=== PATIENT | female | born 1940 | race Caucasian/White ===

== ENCOUNTER 2021-08-19 14:34 | Outpatient (CLI) | payer MEDICARE | END 2021-08-19 14:35 | disposition home or self-care (01) | LOC: ULT 14:34 | PROVIDERS: ATTEND Internal Medicine | DX: I10 Essential (primary) hypertension (principal); N28.1 Cyst of kidney, acquired | CPT/HCPCS: 76770 ==

== ENCOUNTER 2022-04-26 06:13 | Inpatient (IN) | payer MEDICARE ==
[2022-04-26 06:53] LABS: #Basophils 0.1 thou/uL (0.0-0.2); #Eosinphils 0.2 thou/uL (0.0-0.7); #Lymphocytes 1.9 thou/uL (1.20-3.40); #Monocytes 0.5 thou/uL (0.11-0.59); %Basophils 1.2 % (0.0-1.0); %Eosinophils 4.2 % (0.0-10.0); %Monocytes 8.7 % (0.0-10.0); %Neutrophils 52.9 % (42.0-75.0); Hemoglobin 13.7 g/dL (12.0-16.0); Mean Corpuscular HGB CONC 33.7 g/dL (32.0-36.0); Mean Corpuscular Hemoglobin 34.7 pg (27.0-31.0); Mean Platelet Volume 9.2 fL (7.4-10.4); Platelet Count 173 thou/uL (130-400); RBC Distribution Width 10.6 % (11.5-14.5); Red Blood Cell (RBC) Count 3.94 mill/uL (4.20-5.40); White Blood Cell (WBC) Count 5.7 thou/uL (4.8-10.8)
[2022-04-26 07:58] LABS: ALT (SGPT) 20 U/L (8-55); AST (SGOT) 21 U/L (5-34); Albumin 3.5 g/dL (3.4-4.8); Alkaline Phosphatase 55 U/L (40-110); Anion Gap 10 mmol/L (10-20); BUN (Urea Nitrogen) 32 mg/dL (9.8-20.1); Bilirubin, Total 0.3 mg/dL (0.2-1.2); Calc. Creatinine Clearance 0 mL/min (70-130); Calcium 8.6 mg/dL (7.8-10.44); Carbon Dioxide 23 mmol/L (23-31); Chloride 111 mmol/L (98-107); Estimated GFR 70; Glucose 88 mg/dL (83-110); Magnesium 1.7 mg/dL (1.6-2.6); Potassium 3.9 mmol/L (3.5-5.1); Protein, Total 5.5 g/dL (5.8-8.1); Sodium 140 mmol/L (136-145)
[2022-04-26] MEDS ORDERED: Iopamidol-370 76% 500 ML 1 ML ONE (08:39)
[2022-04-26] MEDS ORDERED: Aspirin Chewable 81 MG TAB ONE (08:40)
[2022-04-26] MEDS ORDERED: Enoxaparin Sodium 60 MG/0.6 ML SYRINGE ONE (08:40)
[2022-04-26] MEDS ORDERED: Digoxin 0.5 MG/2 ML AMP ONE ×2 (08:41→08:43)
[2022-04-26] MEDS ORDERED: Magnesium 2 GM/50 ML BAG (IN WATER) ONE (09:51)
[2022-04-26] MEDS ORDERED: Magnesium 2 GM/50 ML(in water) 2 GM in Premix Bag 1 BAG IVPB SCH (10:00)
[2022-04-26 10:16] LABS: Troponin I 0.148 ng/mL (< 0.028)
[2022-04-26 11:13] LABS: SARS-CoV-2 NAA Rapid Test Not Detected (NotDetected)
[2022-04-26 13:10] LABS: Troponin I 0.294 ng/mL (< 0.028)
[2022-04-26] MEDS ORDERED: Ondansetron ODT 4 MG TAB PO PRN (14:07)
[2022-04-26] MEDS ORDERED: Ondansetron PF 4 MG/2 ML Vial IVP PRN (14:07)
[2022-04-26] MEDS: Sodium Chloride 0.9% 1,000 ML IV SCH (14:39)
[2022-04-26] MEDS ORDERED: Digoxin 0.5 MG/2 ML AMP SLOW IVP SCH (15:00)
[2022-04-26 15:01] VITALS: BMI 24.7
[2022-04-27] MEDS: Sodium Chloride 0.9% 1,000 ML IV SCH (03:16)
[2022-04-27 05:09] LABS: ALT (SGPT) 19 U/L (8-55); AST (SGOT) 20 U/L (5-34); Albumin 3.4 g/dL (3.4-4.8); Alkaline Phosphatase 53 U/L (40-110); Anion Gap 9 mmol/L (10-20); BUN (Urea Nitrogen) 19 mg/dL (9.8-20.1); Bilirubin, Total 0.3 mg/dL (0.2-1.2); Calc. Creatinine Clearance 59 mL/min (70-130); Calcium 8.4 mg/dL (7.8-10.44); Carbon Dioxide 21 mmol/L (23-31); Chloride 114 mmol/L (98-107); Estimated GFR 86; Globulin 1.7 g/dL (2.4-3.5); Glucose 87 mg/dL (83-110); Potassium 4.1 mmol/L (3.5-5.1); Protein, Total 5.1 g/dL (5.8-8.1); Sodium 140 mmol/L (136-145)
[2022-04-27] MEDS ORDERED: Enoxaparin Sodium 60 MG/0.6 ML SYRINGE SC SCH (09:00)
[2022-04-27] MEDS ORDERED: Enoxaparin Sodium 40 MG/0.4 ML SYRINGE SC SCH (09:00)
[2022-04-27] MEDS ORDERED: cloNIDine 0.1 MG TAB PO PRN (11:02)
[2022-04-27] MEDS ORDERED: Carvedilol 6.25 MG TAB PO SCH (11:15)
[2022-04-27] MEDS ORDERED: Lisinopril 20 MG TAB PO SCH ×2 (11:30→21:00)
[2022-04-27] MEDS ORDERED: Furosemide 20 MG TAB PO SCH (12:30)
[2022-04-27] MEDS: Acetaminophen 325 MG TAB PO PRN (13:39)
[2022-04-27] MEDS: Dronedarone HCl 400 MG TAB PO SCH (17:28)
[2022-04-27] MEDS: Apixaban 5 MG TAB PO SCH (20:17)
[2022-04-27] MEDS: Carvedilol 6.25 MG TAB PO SCH (20:17)
[2022-04-27] MEDS: Lisinopril 10 MG TAB PO SCH (20:17)
[2022-04-27] MEDS ORDERED: Atorvastatin Calcium 20 MG TAB PO SCH (21:00)
[2022-04-27] MEDS ORDERED: Lisinopril 10 MG TAB PO SCH (21:00)
[2022-04-28] MEDS ORDERED: Levothyroxine Sodium 50 MCG TAB PO SCH (06:00)
[2022-04-28 07:08] LABS: ALT (SGPT) 17 U/L (8-55); AST (SGOT) 20 U/L (5-34); Albumin 3.7 g/dL (3.4-4.8); Alkaline Phosphatase 61 U/L (40-110); Anion Gap 8 mmol/L (10-20); BUN (Urea Nitrogen) 13 mg/dL (9.8-20.1); Bilirubin, Total 0.2 mg/dL (0.2-1.2); Calc. Creatinine Clearance 50 mL/min (70-130); Carbon Dioxide 26 mmol/L (23-31); Cardiac Risk 2.5 (Less than 4.5); Chloride 108 mmol/L (98-107); Cholesterol 135 mg/dl (< 200 Desired); Estimated GFR 71; Globulin 2.3 g/dL (2.4-3.5); Glucose 85 mg/dL (83-110); HDL Cholesterol 53 mg/dL (>60 Neg Risk); LDL Cholesterol, Calculated 61 mg/dL; Sodium 138 mmol/L (136-145); Triglycerides 103 mg/dL (Less than 150)
[2022-04-28] MEDS: Apixaban 5 MG TAB PO SCH (08:48)
[2022-04-28] MEDS: Dronedarone HCl 400 MG TAB PO SCH (08:48)
[2022-04-28] MEDS: Lisinopril 10 MG TAB PO SCH (08:49)
[2022-04-28] MEDS: Carvedilol 6.25 MG TAB PO SCH (08:49)
[2022-04-28] MEDS: Acetaminophen 325 MG TAB PO PRN ×2 (08:59→13:41)
[2022-04-28] MEDS ORDERED: Amlodipine 5 MG TAB PO SCH (09:00)
[2022-04-28] MEDS ORDERED: Aspirin 81 mg Enteric Coated Tablet PO SCH (09:00)
[2022-04-28] MEDS ORDERED: Furosemide 40 MG TAB PO SCH (09:00)
[2022-04-28 17:51] VITALS: BP 145/85; TEMP 98.3
== END 2022-04-28 16:55 | disposition home or self-care (01) | DRG 310 ==
LOC: ERS 06:13 → ERHOLD 08:37 → 2NO 14:19
PROVIDERS: ADMIT Internal Medicine; ATTEND Internal Medicine
DX: I48.0 Paroxysmal atrial fibrillation (principal); Z20.822 Contact with and (suspected) exposure to COVID-19; I87.323 Chronic venous hypertension (idiopathic) with inflammation of bilateral lower extremity; I10 Essential (primary) hypertension; E78.00 Pure hypercholesterolemia, unspecified; R00.1 Bradycardia, unspecified; E03.9 Hypothyroidism, unspecified; K21.9 Gastro-esophageal reflux disease without esophagitis; E78.5 Hyperlipidemia, unspecified; I08.3 Combined rheumatic disorders of mitral, aortic and tricuspid valves; Z82.49 Family history of ischemic heart disease and other diseases of the circulatory system; Z87.891 Personal history of nicotine dependence; Z86.73 Personal history of transient ischemic attack (TIA), and cerebral infarction without residual deficits; Z90.49 Acquired absence of other specified parts of digestive tract; Z90.89 Acquired absence of other organs; Z90.710 Acquired absence of both cervix and uterus; Z98.890 Other specified postprocedural states; Z82.3 Family history of stroke; Z80.6 Family history of leukemia; Z88.5 Allergy status to narcotic agent; Z91.012 Allergy to eggs; Z79.890 Hormone replacement therapy; Z79.899 Other long term (current) drug therapy; Z79.82 Long term (current) use of aspirin
CPT/HCPCS: 36415; 71045; 71275; 80053; 80061; 82550; 83735; 83880; 84443; 84484; 85025; 85379; 93005; 93306; 96361; 96372; 96374; 96375; J1160; J1650; J3475; J7050; Q9967; U0002

== ENCOUNTER 2022-08-17 11:05 | Emergency (ER) | payer MEDICARE ==
[2022-08-17 11:52] LABS: #Eosinphils 0.2 thou/uL (0.0-0.7); #Lymphocytes 0.8 thou/uL (1.20-3.40); #Monocytes 0.5 thou/uL (0.11-0.59); #Neutrophils 5.6 thou/uL (1.40-6.50); %Basophils 0.2 % (0.0-1.0); %Monocytes 7.2 % (0.0-10.0); %Neutrophils 78.5 % (42.0-75.0); Hemoglobin 13.3 g/dL (12.0-16.0); Mean Corpuscular HGB CONC 34.5 g/dL (32.0-36.0); Mean Corpuscular Hemoglobin 35.9 pg (27.0-31.0); Mean Platelet Volume 8.7 fL (7.4-10.4); Platelet Count 189 10x3/uL (130-400); RBC Distribution Width 10.6 % (11.5-14.5); Red Blood Cell (RBC) Count 3.72 mill/uL (4.20-5.40); White Blood Cell (WBC) Count 7.2 10x3/uL (4.8-10.8)
[2022-08-17 12:17] LABS: ALT (SGPT) 17 U/L (8-55); AST (SGOT) 30 U/L (5-34); Albumin 4.2 g/dL (3.4-4.8); Alkaline Phosphatase 58 U/L (40-110); Anion Gap 14 mmol/L (10-20); BUN (Urea Nitrogen) 16 mg/dL (9.8-20.1); Bilirubin, Total 0.4 mg/dL (0.2-1.2); Calc. Creatinine Clearance 0 mL/min (70-130); Calcium 9.5 mg/dL (7.8-10.44); Carbon Dioxide 23 mmol/L (23-31); Chloride 102 mmol/L (98-107); Estimated GFR 44; Globulin 3.3 g/dL (2.4-3.5); Glucose 94 mg/dL (83-110); Potassium 4.2 mmol/L (3.5-5.1); Protein, Total 7.5 g/dL (5.8-8.1); Sodium 135 mmol/L (136-145)
== END 2022-08-17 13:13 | disposition home or self-care (01) ==
LOC: ERS 11:05
DX: I95.9 Hypotension, unspecified (principal); I10 Essential (primary) hypertension; K21.9 Gastro-esophageal reflux disease without esophagitis; E78.5 Hyperlipidemia, unspecified
CPT/HCPCS: 36415; 80053; 84484; 85025; 93005

== ENCOUNTER 2022-08-26 07:44 | Outpatient (CLI) | payer MEDICARE ==
[2022-08-26] MEDS ORDERED: Lidocaine 1% PF 5 ML VIAL ONE (08:15)
[2022-08-26] MEDS ORDERED: Iopamidol 300 61% 100 ML VIAL FS ONE (08:15)
[2022-08-26] MEDS ORDERED: EPINEPHrine 1 MG/ML AMP ONE (08:15)
[2022-08-26] MEDS ORDERED: Sodium Chloride 0.9% (PF) 10 ML VIAL ONE (08:15)
== END 2022-08-26 07:45 | disposition home or self-care (01) ==
LOC: RAD 07:44
PROVIDERS: ATTEND Orthopaedic Surgery
DX: M75.41 Impingement syndrome of right shoulder (principal); M75.111 Incomplete rotator cuff tear or rupture of right shoulder, not specified as traumatic; S46.211A Strain of muscle, fascia and tendon of other parts of biceps, right arm, initial encounter; S43.431A Superior glenoid labrum lesion of right shoulder, initial encounter
CPT/HCPCS: 23350; J0171; Q9967